=== PATIENT | female | born 1945 | race Caucasian/White ===

== ENCOUNTER 2017-08-10 05:28 | Day surgery (SDC) | payer MEDICARE ==
[2017-08-07 11:27] VITALS: BMI 30.7
--- NOTE | 2017-08-07 14:25 | HP ---
HISTORY OF PRESENT ILLNESS: Ms. Sultana is a 72-year-old female who presents with pain, numbness and ti ngling in the left C6 dermatome. She has had this pain for approximately the past 2 months after get ting out of her car holding a bag of heavy groceries. She felt a pop in her neck and within the next few days she developed pain in the left arm. She has weakness in the left bicep compared to the rig ht. Paresthesias was noted in the left posterior thumb and arm. She has not had any physical therap y or injections for this pain; however, she has been wearing a soft cervical collar that has helped s ignificantly while it is on. The pain is made worse with rotation to the left and she has positive S purling's to the left. MRI cervical spine and x-rays at [facility]. REVIEW OF SYSTEMS: Ten-point review of systems negative, unless stated otherwise in the HPI. PAST MEDICAL HISTORY: Hypertension, diabetes, disease. PAST SURGICAL HISTORY: Tonsillectomy, hysterectomy, gallbladder, cataracts and left lower jaw surger y. HOSPITALIZATIONS: Surgery and childbirth. FAMILY HISTORY: Father is , diagnosed with diabetes. Mother is , diagnosed with mouna betes and heart disease. Siblings are alive, diagnosed with diabetes and heart disease. SOCIAL HISTORY: The patient is a nonsmoker. 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 MEDICATIONS: 1. Metformin HCL. 2. Bydureon. 3. Losartan/hydrochlorothiazide. 4. Atorvastatin. 5. Calcium. 6. Aspirin. 7. Multivitamin. 8. Ibuprofen. ALLERGIES: DEMEROL, CODEINE SULFATE, TETANUS, IMMUNOGLOBULIN. PHYSICAL EXAMINATION: HEENT: Normocephalic, atraumatic. Hearing intact. Moist mucous membranes. Trachea is midline. EYES: Pupils are equal and reactive to light. Extraocular muscles are intact. Sclerae is white, no nicteric. PSYCHIATRIC: Normal mood and affect. CARDIOVASCULAR/PULMONARY: No cyanosis or clubbing noted. Intact pedal pulses bilaterally. MUSCULOSKELETAL: Upper extremity, 4/5 strength in the left biceps and brachialis muscle with limited range of motion of the neck due to pain. Sensory deficits in the left C6 dermatome. RESPIRATORY: The patient has bilateral symmetric chest rise. Appears to have no shortness of breath . NEUROLOGIC: Cranial nerves II-XII are grossly intact. Speech is fluent. She answers my questions a ppropriately. She has normal gait and station. ASSESSMENT: Acute cervical radiculopathy. PLAN: Dr. Snow offered a C5-C6 ACDF. We discussed the risks, benefits, and possible complicati ons and alternatives to surgery. The patient understands the risks fully and she is willing to proce ed with surgical intervention.
[2017-08-10] MEDS ORDERED: CEFAZOLIN/Water 2 GM/20 ML SYRINGE ONE (06:18)
[2017-08-10 06:25] LABS: Hemoglobin 13.4 g/dL (12.0-16.0); Mean Corpuscular HGB CONC 33.1 g/dL (32.0-36.0); Mean Corpuscular Volume 90.5 fl (81.0-99.0); Mean Platelet Volume 7.5 fL (7.4-10.4); Platelet Count 292 thou/uL (130-400); RBC Distribution Width 12.1 % (11.5-14.5); Red Blood Cell (RBC) Count 4.48 mill/uL (4.20-5.40); White Blood Cell (WBC) Count 10.2 thou/uL (4.8-10.8)
[2017-08-10 06:30] LABS: PTT 25.2 SEC (22.9-36.1); Prothrombin Time 13.1 SEC (12.0-14.7)
[2017-08-10 06:36] LABS: Anion Gap 14 mmol/L (10-20); BUN (Urea Nitrogen) 22 mg/dL (9.8-20.1); Calc. Creatinine Clearance 87 mL/min (70-130); Calcium 9.9 mg/dL (7.8-10.44); Carbon Dioxide 29 mmol/L (23-31); Chloride 104 mmol/L (98-107); Estimated GFR-MDRD 69; Glucose 145 mg/dL (80-115); Sodium 143 mmol/L (136-145)
[2017-08-10] MEDS ORDERED: Thrombin 5000 UNITS/5 ML VIAL ONE (06:37)
[2017-08-10] MEDS ORDERED: Sodium Chloride 0.9% 10 ML ONE (06:37)
[2017-08-10] MEDS ORDERED: Fentanyl 100 MCG/2 ML VIAL ONE ×3 (06:58→10:41)
--- NOTE | 2017-08-10 11:33 | OP ---
DATE OF PROCEDURE: 08/20/2017 SURGEON: Alvaro Snow M.D. BIN WORKER: Irving Grayson PA-C. PREOPERATIVE INDICATION: Prevent neurological deterioration. 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 POSTOPERATIVE DIAGNOSES: Intervertebral disk disease at C5-6 with cord compression and right-sided r adiculopathy. OPERATIVE PROCEDURE: Anterior cervical diskectomy, intervertebral arthrodesis, placement of interver tebral biomechanical device, anterior cervical plating C5-C6, local morselized autograft, morselized Allograft, and operating microscope. PREOPERATIVE MEDICATIONS: Ancef 2 grams IV. DRAIN NUMBER: Zero. DRAIN TYPE: None. OPERATIVE DICTATION: The patient was brought to the operating room. General endotracheal anesthesia was induced. The patient was positioned supine on the operating table with her head supported by ge l-filled donut shaped head rest. A lateral fluoro radiograph was used to plan our incision. The rig ht side neck was sterilely prepped and draped. We opened with a 15 blade knife and controlled bleedi ng with bipolar cautery. We dissected sharply to the platysma and cut this muscle in line with our i ncision. We continued our dissection medial to the sternocleidomastoid, lateral to the trachea and e sophagus and arrived at the prevertebral space. We placed a marker at C4-5 and took a lateral fluoro radiograph. We then counted down one interspace to C5-6. We removed anterior osteophytes and place d a self-retaining retractor under the longus colli muscles after we had elevated the muscles. Distr action pin was placed at C5 and C6 and we distracted across the intervening interspace. Interspace w as incised and we removed disk contents using curettes and rongeurs. The operative microscope was br ought in the field. Under microscopic magnification using microsurgical techniques, we removed the remainder of the inter vertebral disk. We accessed the ventral epidural space with a micro curet and then used a 1 and 2 mm Kerrison rongeurs to remove the posterior osteophytes and the remainder of the posterior longitudina l ligament across the entire interspace from the right neural foramen all the way to the left neural foramen. At the completion of the decompression, the dura was pulsatile and had no further indentati on. We prepared the endplates for grafting using a curet and measured the height of the interspace t o 7 mm. A 7 mm PEEK intervertebral graft was loaded with demineralized bone matrix and morselized au tograft and advanced into the interspace under radiographic guidance to the appropriate depth. Distr action pins were removed and a 14 mm plate brought into the field. The operating microscope was take n back out. We drilled bar pilot holes through the plate into C5 and C6 and affixed the plate using variable angle sc rews above and fixed angle screws below and engaged the locking mechanism over each of the 4 screws. AP and lateral fluoro radiographs confirmed adequate position of instrumentation. We irrigated copi ously with bacitracin irrigation. We closed the wound in anatomic layers and applied a sterile dress ing. This was a clean case and no contamination.
[2017-08-10] MEDS ORDERED: PROPOFOL 200 MG/20 ML VIAL ONE (16:28)
[2017-08-10] MEDS ORDERED: Glycopyrrolate 0.2 MG/ML 5 ML SYRINGE ONE (16:28)
[2017-08-10] MEDS ORDERED: Dexamethasone 20 MG/5 ML VIAL ONE (16:28)
[2017-08-10] MEDS ORDERED: Ondansetron HCl/PF 4 MG/2 ML Vial ONE (16:28)
[2017-08-10] MEDS ORDERED: Lidocaine 1% PF 5 ML VIAL ONE (16:28)
== END 2017-08-10 12:35 | disposition home or self-care (01) ==
LOC: SDC 05:28
PROVIDERS: ATTEND Neurological Surgery
PROC: 0RG20A0 Fusion of 2 or more Cervical Vertebral Joints with Interbody Fusion Device, Anterior Approach, Anterior Column, Open Approach (ICD-10-PCS; principal; 2017-08-10)
DX: M50.122 Cervical disc disorder at C5-C6 level with radiculopathy; Z88.8 Allergy status to other drugs, medicaments and biological substances; Z88.5 Allergy status to narcotic agent; E11.9 Type 2 diabetes mellitus without complications; Z88.7 Allergy status to serum and vaccine; Z79.899 Other long term (current) drug therapy; Z79.82 Long term (current) use of aspirin; I10 Essential (primary) hypertension; Z79.1 Long term (current) use of non-steroidal anti-inflammatories (NSAID); Z79.84 Long term (current) use of oral hypoglycemic drugs
CPT/HCPCS: 76001; 80048; 85027; 85610; 85730; 96374; A4216; C1713; C1776; J0131; J1100; J2001; J2405; J2704; J3010; J3490